=== PATIENT | male | born 1950 | race Caucasian/White ===

== ENCOUNTER 2021-01-03 08:46 | Day surgery (SDC) | payer MEDICARE ==
[2020-12-28 10:08] LABS: Hematocrit 44.3 % (35.5-45.6); Hemoglobin 15.6 gm/dl (11.8-15.2); Mean Corpuscular HGB Conc 35 % (32-34); Mean Corpuscular Volume 86 fl (84-94); Platelet Count 216 K/mm3 (140-440); Red Blood Count 5.13 M/mm3 (3.65-5.03); Red Cell Distribution Width 13.7 % (13.2-15.2)
[2020-12-28 10:33] LABS: Alanine Aminotransferase 21 units/L (7-56); Albumin 4.4 g/dL (3.9-5); Blood Urea Nitrogen 9 mg/dL (9-20); Calcium 9.8 mg/dL (8.4-10.2); Hemolysis Index 7
[2020-12-28 10:38] LABS: BUN/Creatinine Ratio 13
[2021-01-03] MEDS ORDERED: LACTATED RINGERS 1,000 ML IV SCH (09:15)
[2021-01-03] MEDS ORDERED: LIDOCAINE MPF (2%) 20 MG/1 ML VIAL 5 ML ONE (09:28)
[2021-01-03] MEDS ORDERED: ONDANSETRON 4 MG/2 ML INJ ONE (09:28)
[2021-01-03] MEDS ORDERED: fentaNYL 100 MCG/2 ML INJ ONE (09:28)
[2021-01-03] MEDS ORDERED: propofoL 200 MG/20 ML VIAL IV ONE (09:29)
[2021-01-03] MEDS ORDERED: ONDANSETRON 4 MG/2 ML INJ IV PRN (09:39)
[2021-01-03] MEDS ORDERED: HYDROmorphone 1 MG/1 ML INJ IV PRN ×2 (09:39)
--- NOTE | 2021-01-03 09:40 | Anesthesia Day of Surgery ---
Anesthesia Day of Surgery - Day of Surgery Patient Examined: Yes Patient H&P Reviewed: Yes Patient is NPO: Yes
--- NOTE | 2021-01-03 09:41 | Anesthesia Consultation ---
Anesthesia Consult and Med Hx Date of service: 01/03/21 - Airway Anesthetic Teeth Evaluation: Chipped ROM Head & Neck: Adequate Mental/Hyoid Distance: Adequate Mallampati Class: Class III Intubation Access Assessment: Probably Good - Pre-Operative Health Status ASA Pre-Surgery Classification: ASA2 Proposed Anesthetic Plan: General - Pulmonary Hx Smoking: Yes (STOPPED 1980) Hx Asthma: Yes (USES INHALER EACH DAY. Aggravated by pollen) Hx Respiratory Symptoms: No (+2FS; walks 3.5-4 miles qd) Hx Sleep Apnea: No (VANNESA PRE SCREEN HIGH) - Cardiovascular System Hx Hypertension: Yes - Central Nervous System Hx Psychiatric Problems: No - Gastrointestinal Hx Gastroesophageal Reflux Disease: No - Endocrine Hx Non-Insulin Dependent Diabetes: Yes (PRE) - Hematic Hx Anemia: No Hx Sickle Cell Disease: No - Other Systems Hx Cancer: No
--- NOTE | 2021-01-03 09:49 | Post Operative Note ---
Date of procedure: 01/03/21 Pre-op diagnosis: left scrotal mass inc psa Post-op diagnosis: same Findings: scrotal exp spermatocelectomy pus bx Procedure: see above Anesthesia: GETA Surgeon: REEMA RUCKER Estimated blood loss: minimal Pathology: list (see below) Specimen disposition: to lab (sac prostate ) Condition: stable Disposition: PACU
--- NOTE | 2021-01-03 09:50 | Discharge Summary ---
Short Stay Discharge Plan Activity: other (no straining ) Weight Bearing Status: Full Weight Bearing Diet: low fat, low cholesterol, low salt Wound: change dressing, other (ice in rr and x 24 hrs ) Special Instructions: other (f/u 48 hrs drain removal ) Durable Medical Equipment Needed Upon Discharge: other (malissa ) Follow up with: CARLOS BURGOS MD [Primary Care Provider] - 7 Days
[2021-01-03] MEDS ORDERED: ceFAZolin/Water 2 GM/20 ML 2 GM/20 ML SYRINGE IV NR (10:00)
[2021-01-03] MEDS ORDERED: SODIUM CHLORIDE 0.9% IRR 1,500 ML BOTTLE IR ONE (11:30)
[2021-01-03] MEDS ORDERED: WATER FOR IRRIG STERILE 2000 ML IR ONE (11:30)
[2021-01-03] MEDS ORDERED: LACTATED RINGERS 1,000 ML ONE (11:41)
--- NOTE | 2021-01-03 12:59 | Operative Report ---
DATE OF SURGERY: 01/03/2021 PREOPERATIVE DIAGNOSES: Large left scrotal mass, significantly increased PSA, poorly compliant with followup. POSTOPERATIVE DIAGNOSES: Large left scrotal mass, significantly increased PSA, poorly compliant with followup. PROCEDURES: Left scrotal mass excision, spermatocelectomy, hydrocelectomy, flexible cystoscopy and transrectal ultrasound-guided biopsy of the prostate. SURGEON: Dr. Doan. ANESTHESIA: General. FINDINGS: This is a gentleman who has had elevated PSA, never followed up. He has a huge mass in the left hemiscrotum. He now presents for treatment. This is a multiloculated cystic. DESCRIPTION OF PROCEDURE: The patient was brought to the OR and placed on the operating table. Following induction of anesthesia, placed in the modified lithotomy position, prepped and draped in usual sterile fashion. An oblique incision made over the left hemiscrotum, carried through the skin and superficial fascia. The tunica was identified and dissected from the surrounding adherent fascia. This was opened. Clear yellow fluid, approximately 125 mL were obtained. There were smaller spermatoceles as well, which were opened and oversewn and removed or excised. The hydrocele sac was oversewn in a Lord's fashion, being sure that this was not redeveloped around the testis. The excess spermatocele tissue was excised. Wound was copiously irrigated. There was no significant bleeding or the raw surface was oversewn or cauterized. A 1/2-inch [place] was placed in the dependent portion of the scrotum. Wound was irrigated. The scrotal fascia was closed with 3-0 chromic, skin with 3-0 chromic. At this point, flexible cystoscopy showed BPH, trilobar hypertrophy, 1-2+ trabeculation. No lesions were noted. We then used the transrectal ultrasound in the lithotomy position after we prepped his rectum with Betadine. Biopsies 6 on the left, 6 on the right were carried out without difficulty. We used rectal foam plug. The patient tolerated the procedure well. No significant complication. Brought to recovery in stable condition. Minimal blood loss. TID: [id number] RECEIPT: [id number] BMZ/PRE
[2021-01-03] MEDS ORDERED: oxyCODONE /ACETAMINOPHEN 5-325MG TAB PO ONE (13:00)
[2021-01-03 15:44] VITALS: BP 147/80
--- NOTE | 2021-01-03 17:52 | Ultrasound Report ---
US guide intraoperative INDICATION: PROSTATE BX. COMPARISON: None available. FINDINGS: Images were obtained for intraoperative guidance for prostate biopsy. The prostate measures 76.6 cc. See operative note for complete details. Signer Name: Sae Duncan MD Signed: 01/03/2021 5:48 PM Workstation Name: [id number]
--- NOTE | 2021-01-03 18:04 | Post Anesthesia Evaluation ---
- Post Anesthesia Evaluation Patient Participated: Yes Airway Patent: Yes Stable Respiratory Function: Yes Nausea/Vomiting: No Temp > 96.8F: Yes Pain Manageable: Yes Adequeate Hydration: Yes Anesthesia Complications: No Block Receding Appropriately: Not Applicable Patient on Ventilator: No
== END 2021-01-03 13:15 | disposition home or self-care (01) ==
LOC: OR 08:46
PROVIDERS: ATTEND Urology
DX: R97.20 Elevated prostate specific antigen [PSA] (principal); N50.89 Other specified disorders of the male genital organs; N43.40 Spermatocele of epididymis, unspecified; N41.9 Inflammatory disease of prostate, unspecified; Z20.822 Contact with and (suspected) exposure to COVID-19; N40.0 Benign prostatic hyperplasia without lower urinary tract symptoms; Z79.899 Other long term (current) drug therapy; Z87.891 Personal history of nicotine dependence; Z98.41 Cataract extraction status, right eye; Z98.42 Cataract extraction status, left eye; I10 Essential (primary) hypertension; J45.909 Unspecified asthma, uncomplicated; E11.9 Type 2 diabetes mellitus without complications; Z98.890 Other specified postprocedural states
CPT/HCPCS: 36415; 52000; 54840; 55700; 76998; 80053; 82962; 85027; 88304; 88305; A4217; J0690; J2405; J2704; J3010; J7120; U0003; 76830; 76872; 88344